=== PATIENT | male | born 1955 | race Caucasian/White ===

== ENCOUNTER 2017-06-21 11:31 | Emergency (ER) | payer BC ==
[2017-06-21 12:40] LABS: ABS Basophils 0.1 10^3/ul (0-0.2); ABS Eosinophils 0.4 10^3/ul (0-0.6); ABS Lymphocytes 1.5 10^3/ul (1.0-4.8); ABS Monocytes 0.7 10^3/ul (0-0.8); ABS Neutrophils 4.5 10^3/ul (1.5-7.7); ABS Nucleated RBC 0 10^3/ul; Eosinophil % 5.2 % (0-6); Hematocrit 45 % (42-52); Hemoglobin 14.9 g/dl (14.0-18.0); Lymphocyte % 20.7 % (25-47); Mean Corpuscular HGB Conc 34 g/dl (31-36); Mean Corpuscular Hemoglobin 31 pg (27-31); Mean Corpuscular Volume 94 fL (80-94); Mean Platelet Volume 7 um3 (7.4-10.4); Nucleated Red Blood Cells % 0; Platelet Count 249 10^3/ul (150-450); Red Blood Count 4.76 10^6/ul (4.0-5.4); Red Cell Distribution Width 14 % (10.5-15); White Blood Count 7.2 10^3/ul (3.5-10.8)
[2017-06-21 12:51] LABS: INR 0.93 (0.77-1.02)
[2017-06-21 12:57] LABS: EGFR Non-African American 110.6 (>60)
--- NOTE | 2017-06-21 13:40 | RAD ---
INDICATION: Chest pain COMPARISON: Chest x-ray dated February 12, 2016 TECHNIQUE: Single AP portable view of the chest was obtained. FINDINGS: Image quality is compromised due to the relative inferiority of a portable chest x-ray. The heart and mediastinum exhibit normal size and contour. The lungs are grossly clear. There is no evidence of a large pleural effusion. Visualized bones are normal for the patient's age. IMPRESSION: No radiographic evidence for acute cardiopulmonary abnormality on this portable chest x-ray.
[2017-06-21 15:59] VITALS: BP 126/95
--- NOTE | 2017-06-22 20:09 | ED ---
Harry Solorzano Thomas, scribed for Lorenzo Morse MD on 06/21/17 at 1228 . Complex/Multi-Sys Presentation - HPI Summary HPI Summary: The patient is a 61 year old male presenting with mild lightheadedness and left- sided facial and left arm tingling that began two days ago. These symptoms are not affected by movement or exertion. The patient denies chest pain, shortness of breath, nausea, and diaphoresis. The patients blood pressure was measured at 180/105 prior to arrival. The patient had an PA in 2008. He is on ASA 81 and Effient. - History Of Current Complaint Chief Complaint: EDChestPainROMI Time Seen by Provider: 06/21/17 11:51 Hx Obtained From: Patient Onset/Duration: Lasting Days - 2, Still Present Timing: Constant Severity Currently: Mild Alleviating Factor(s): None Associated Signs And Symptoms: Positive: Other - lightheadedness, facial numbness; NEGATIVE: CP, SOB, nausea, diaphoresis Related History: Other - PA in 2008 - Allergies/Home Medications Allergies/Adverse Reactions: Allergies Allergy/AdvReac Type Severity Reaction Status Date / Time codeine Allergy Hives Verified 06/21/17 11:34 ibuprofen Allergy GI Upset Verified 06/21/17 11:35 PMH/Surg Hx/FS Hx/Imm Hx Endocrine/Hematology History: Reports: Hx Anticoagulant Therapy Denies: Hx Diabetes Cardiovascular History: Reports: Hx Angina, Hx Congestive Heart Failure, Hx Coronary Artery Disease, Hx Hypercholesterolemia, Hx Hypertension, Hx Myocardial Infarction, Other Cardiovascular Problems/Disorders - 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 Gastric bypass, 2006, [place]. Inguinal hernia with mesh, 2007, [place]. Carpal tunnel surgery (bilat), 1999, [facility] [place]. Left elbow fx and repair, as child Hx Anesthesia Reactions: No Infectious Disease History: Denies: Traveled Outside the [place] in Last 30 Days - Family History Known Family History: Positive: Cardiac Disease - Social History Alcohol Use: None Substance Use Type: Reports: None Smoking Status (MU): Never Smoked Tobacco Review of Systems Negative: Fever, Skin Diaphoresis Negative: Chest Pain Negative: Shortness Of Breath Negative: Nausea Neurological: Other - Mild lightheadness, tingling All Other Systems Reviewed And Are Negative: Yes Physical Exam - Summary Physical Exam Summary: Appearance: The patient is well-nourished in no acute distress and in no acute pain. Skin: The skin is warm and dry and skin color reflects adequate perfusion. HEENT: ~The head is normocephalic and atraumatic. The pupils are equal and reactive. The conjunctivae are clear and without drainage. ~Nares are patent and without drainage. Mouth reveals moist mucous membranes and the throat is without erythema and exudate. The external ears are intact. The ear canals are patent and without drainage. The tympanic membranes are intact. Neck: the neck is supple with full range of motion and non-tender. There are no carotid bruits. ~There is no neck vein distension. Respiratory: Chest is non-tender. ~Lungs are clear to auscultation and breath sounds are symmetrical and equal. Cardiovascular: Heart is regular rate and rhythm. ~There is no murmur or rub auscultated. ~~There is no peripheral edema and pulses are symmetrical and equal. Abdomen: The abdomen is soft and non-tender. ~There are normal bowel sounds heard in all four quadrants and there is no organomegaly palpated. Musculoskeletal: There is no back tenderness noted. ~Extremities are non-tender with full range of motion. ~There is good capillary refill. There is no peripheral edema or calf tenderness elicited. Neurological: Patient is alert and oriented to person, place and time. ~The patient has symmetrical motor strength in all four extremities. ~Cranial nerves are grossly intact. Deep tendon reflexes are symmetrical and equal in all four extremities. Psychiatric: The patient has an appropriate affect and does not exhibit any anxiety or depression. Triage Information Reviewed: Yes Vital Signs On Initial Exam: Initial Vitals Temp Pulse Resp BP Pulse Ox 98.1 F 74 16 182/86 96 06/21/17 11:35 06/21/17 11:35 06/21/17 11:35 06/21/17 11:35 06/21/17 11:35 Vital Signs Reviewed: Yes Diagnostics - Vital Signs Vital Signs Temp Pulse Resp BP Pulse Ox 06/21/17 11:35 98.1 F 74 16 182/86 96 - Laboratory Lab Results: Lab Results 06/21/17 06/21/17 06/21/17 Range/Units 12:30 12:30 12:30 WBC 7.2 (3.5-10.8) 10^3/ul RBC 4.76 (4.0-5.4) 10^6/ul Hgb 14.9 (14.0-18.0) g/dl Hct 45 (42-52) % MCV 94 (80-94) fL MCH 31 (27-31) pg MCHC 34 (31-36) g/dl RDW 14 (10.5-15) % Plt Count 249 (150-450) 10^3/ul MPV 7 L (7.4-10.4) um3 Neut % (Auto) 62.7 (38-83) % Lymph % (Auto) 20.7 L (25-47) % Whitfield % (Auto) 10.1 H (0-7) % Eos % (Auto) 5.2 (0-6) % Baso % (Auto) 1.3 (0-2) % Absolute Neuts (auto) 4.5 (1.5-7.7) 10^3/ul Absolute Lymphs (auto) 1.5 (1.0-4.8) 10^3/ul Absolute Monos (auto) 0.7 (0-0.8) 10^3/ul Absolute Eos (auto) 0.4 (0-0.6) 10^3/ul Absolute Basos (auto) 0.1 (0-0.2) 10^3/ul Absolute Nucleated RBC 0 10^3/ul Nucleated RBC % 0 INR (Anticoag Therapy) 0.93 (0.77-1.02) Sodium 137 (133-145) mmol/L Potassium 4.1 (3.5-5.0) mmol/L Chloride 105 (101-111) mmol/L Carbon Dioxide 25 (22-32) mmol/L Anion Gap 7 (2-11) mmol/L BUN 17 (6-24) mg/dL Creatinine 0.72 (0.67-1.17) mg/dL Est GFR ( Amer) 142.3 (>60) Est GFR (Non-Af Amer) 110.6 (>60) BUN/Creatinine Ratio 23.6 H (8-20) Glucose 101 H (70-100) mg/dL Lactic Acid (0.5-2.0) mmol/L Calcium 9.4 (8.6-10.3) mg/dL Total Bilirubin 0.50 (0.2-1.0) mg/dL AST 28 (13-39) U/L ALT 20 (7-52) U/L Alkaline Phosphatase 74 (34-104) U/L Troponin I 0.00 (<0.04) ng/mL Total Protein 7.2 (6.4-8.9) g/dL Albumin 4.1 (3.2-5.2) g/dL Globulin 3.1 (2-4) g/dL Albumin/Globulin Ratio 1.3 (1-3) 06/21/17 06/21/17 Range/Units 12:30 15:12 WBC (3.5-10.8) 10^3/ul RBC (4.0-5.4) 10^6/ul Hgb (14.0-18.0) g/dl Hct (42-52) % MCV (80-94) fL MCH (27-31) pg MCHC (31-36) g/dl RDW (10.5-15) % Plt Count (150-450) 10^3/ul MPV (7.4-10.4) um3 Neut % (Auto) (38-83) % Lymph % (Auto) (25-47) % Whitfield % (Auto) (0-7) % Eos % (Auto) (0-6) % Baso % (Auto) (0-2) % Absolute Neuts (auto) (1.5-7.7) 10^3/ul Absolute Lymphs (auto) (1.0-4.8) 10^3/ul Absolute Monos (auto) (0-0.8) 10^3/ul Absolute Eos (auto) (0-0.6) 10^3/ul Absolute Basos (auto) (0-0.2) 10^3/ul Absolute Nucleated RBC 10^3/ul Nucleated RBC % INR (Anticoag Therapy) (0.77-1.02) Sodium (133-145) mmol/L Potassium (3.5-5.0) mmol/L Chloride (101-111) mmol/L Carbon Dioxide (22-32) mmol/L Anion Gap (2-11) mmol/L BUN (6-24) mg/dL Creatinine (0.67-1.17) mg/dL Est GFR ( Amer) (>60) Est GFR (Non-Af Amer) (>60) BUN/Creatinine Ratio (8-20) Glucose (70-100) mg/dL Lactic Acid 0.8 (0.5-2.0) mmol/L Calcium (8.6-10.3) mg/dL Total Bilirubin (0.2-1.0) mg/dL AST (13-39) U/L ALT (7-52) U/L Alkaline Phosphatase (34-104) U/L Troponin I 0.00 (<0.04) ng/mL Total Protein (6.4-8.9) g/dL Albumin (3.2-5.2) g/dL Globulin (2-4) g/dL Albumin/Globulin Ratio (1-3) Result Diagrams: 06/21/17 12:30 06/21/17 12:30 Lab Statement: Any lab studies that have been ordered have been reviewed, and results considered in the medical decision making process. - Radiology CXR Xray Interpretation: No Acute Changes - No radiographic evidence for acute cardiopulmonary abnormality on this portable chest x-ray. Dr. Morse has reviewed this report. Radiology Interpretation Completed By: Radiologist - EKG 11:37 Cardiac Rate: Bradycardia EKG Rhythm: Sinus Bradycardia - at 60 BPM Complex Multi-Symp Course/Dx Course Of Treatment: Mr. Hernandez presented with an atypical CP that reminded him of when he had his heart attack a decade ago. His W/U including two troponins was negative and he was D/C'd to F/U with his PMD. - Diagnoses Provider Diagnoses: Chest pain Discharge - Discharge Plan Condition: Stable Disposition: HOME Patient Education Materials: Chest Pain (ED) Referrals: Mariely Arguello MD [Primary Care Provider] - 3 Days Additional Instructions: Follow up with Dr. Arguello in three days. Return to the emergency department for any new or worsening symptoms. The documentation as recorded by the Harry johnson Thomas accurately reflects the service I personally performed and the decisions made by , Lorenzo Morse MD.
== END 2017-06-21 16:11 | disposition home or self-care (01) ==
LOC: ED 11:31
DX: R07.9 Chest pain, unspecified (principal); R42 Dizziness and giddiness; Z79.01 Long term (current) use of anticoagulants
CPT/HCPCS: 36415; 71045; 80053; 83605; 84484; 85025; 85610; 93005; 99282

== ENCOUNTER 2018-04-23 08:02 | Day surgery (SDC) | payer BC ==
[~2018-04-23 08:02] MED LIST: Buffered Lidocaine 1% SYRIN* 1 ML/SYRINGE INTRADERM ONE; Lactated Ringers 1000 ML Bag* 1,000 ML IV SCH
[2018-04-23] MEDS ORDERED: Bupivacaine 0.25% SDV PF* 10 ML VIAL INJ ONE (09:00)
[2018-04-23] MEDS ORDERED: Naloxone* 0.4 MG/ML 1 ML VIAL IV PRN (09:06)
[2018-04-23] MEDS ORDERED: fentaNYL* 50 MCG/ML 2 ML VIAL (100 MCG VIAL) ONE (09:20)
[2018-04-23] MEDS ORDERED: Midazolam* 1 MG/ML 2 ML VIAL (2 MG) ONE (09:20)
[2018-04-23 10:06] VITALS: BP 138/89
--- NOTE | 2018-04-23 14:40 | OP ---
DATE OF OPERATION: 04/23/18 [facility] DATE OF : 53 SURGEON: Maxim Ramsey MD COMMUNITY SERVICE PATROL OFFICER: LAURY Stuart ANESTHESIOLOGIST: Dr. Carolina. ANESTHESIA: Local MAC. PRE-OP DIAGNOSIS: Chronic left ring trigger finger. POST-OP DIAGNOSES: 1. Chronic left ring trigger finger. 2. Left ring finger abundant tenosynovitis. OPERATIVE PROCEDURE: INDICATIONS: Javier has the aforementioned trigger finger. We talked about risks and benefits. He wanted to proceed. FINDINGS: See above and below. ESTIMATED BLOOD LOSS: 1 mL. COMPLICATIONS: None. DESCRIPTION OF PROCEDURE: Javier was seen in the preoperative holding area. The correct site, side, and procedure were identified. We came back to the operating room where I infiltrated the operative area with 0.25% plain Marcaine. The arm was then prepped and draped in the usual fashion and a time- out was performed. I exsanguinated the arm with the Esmarch and the tourniquet was inflated to 250 mmHg. I made a 1-cm transverse incision in the distal palmar crease. Dissection was carried down and full-thickness flaps were raised bluntly off the flexor tendon sheath. I had released a few of the bands of palmar fascia. I then released the A1 divya along the radial third longitudinally. There was a large amount of tenosynovitis all around the tendons. I decided that we should excise this, so we took some time and we performed a full flexor tenosynovectomy of the FDS and FDP tendon. Once I had the tendons nicely cleaned and Javier flexed his hand down multiple times, there was no more triggering, we irrigated out the wound. Skin was closed with 4-0 nylon suture. Soft dressings were applied and he was taken to the recovery room in stable condition. [id number]/[facility] #: [id number] JOHN
== END 2018-04-23 10:20 | disposition home or self-care (01) ==
LOC: OREAST 08:02
PROVIDERS: ATTEND Orthopaedic Surgery Hand Surgery
DX: M65.342 Trigger finger, left ring finger (principal); M65.842 Other synovitis and tenosynovitis, left hand; I11.9 Hypertensive heart disease without heart failure; E78.5 Hyperlipidemia, unspecified; M19.90 Unspecified osteoarthritis, unspecified site; Z79.899 Other long term (current) drug therapy; Z79.82 Long term (current) use of aspirin
CPT/HCPCS: 88304; J2250; J3010; J3490

== ENCOUNTER → 2019-02-08 09:04 | Day surgery (SDC) | payer BC ==
--- NOTE | 2019-01-22 10:53 | HP ---
AMENDED REPORT NOW INCLUDES DESIGNATED COSIGNER CC: Dr. Mariely Arguello; Dr. Suresh * PREOPERATIVE HISTORY AND PHYSICAL: DATE OF ADMISSION/SURGERY: This patient is scheduled for same-day surgery admission by Dr. Ayala on 02/08/19. DATE OF PREOPERATIVE HISTORY AND PHYSICAL EXAMINATION: 01/19/19 ATTENDING SURGEON: Dr. Hugo Ayala * (dictated by Gabby Cao NP). CHIEF COMPLAINT: Right groin hernia. HISTORY OF PRESENT ILLNESS: The patient is a 63-year-old male recently evaluated by Dr. Ayala for a right inguinal hernia. The patient states that he has noticed a bulge for several months and thinks it may be enlarging. He has also noticed discomfort with activity modified by rest; he denies any signs or symptoms to suggest incarceration or strangulation and has had no difficulty with bladder or bowel movements. He had a ventral hernia repair with mesh in 2007 and an open left inguinal hernia repair with mesh in 2008. He underwent a gastric bypass in 2007 and had a 200-pound weight loss. Dr. Ayala examined the patient and noted a large pannus from significant weight loss; the patient revealed a reducible right inguinal hernia and no left inguinal hernia was palpated. Dr. Ayala discussed the above findings with the patient and has offered robotic repair of the right inguinal hernia with mesh as the same day surgery procedure; Dr. Ayala also discussed open repair. The patient has opted for robotic repair of the right inguinal hernia with mesh; Dr. Ayala discussed the relevant risks and benefits of the same day surgery and the expected postoperative care and recovery. The patient has had a chance to ask questions and stated that he understands the information and is satisfied with the answers given to his questions. He will signs surgical consent on the day of surgery. PAST MEDICAL HISTORY: Significant for: 1. Obesity. 2. Coronary artery disease with previous myocardial infarction in 2009, followed by angioplasty and stenting on two separate occasions; hypertension well controlled and hyperlipidemia. PAST SURGICAL HISTORY: 1. Gastric bypass in , 2006. 2. Ventral hernia repair with mesh, 2007. 3. Open left inguinal hernia repair with mesh, 2008. 4. Nasal surgery, 2008. 5. Angioplasty and stent placement, 2009. 6. Right total knee replacement, 2015. 7. Tonsillectomy many years ago. CURRENT MEDICATIONS: 1. Atorvastatin 80 mg p.o. daily. 2. Metoprolol 25 mg one half tablet by mouth daily. 3. Lisinopril 10 mg one half tablet by mouth daily. 4. Pantoprazole 20 mg p.o. daily. 5. Ezetimibe 10 mg p.o. daily. 6. Aspirin 81 mg p.o. daily which she will hold 5 days preoperatively. 7. Effient 10 mg p.o. daily. 8. Nitroglycerin 0.4 mg 1 sublingual every 5 minutes x3 p.r.n., none needed recently. ALLERGIES: TYLENOL WITH CODEINE causes dizziness and hot flashes. FAMILY HISTORY: Father due to a logging accident with a history of hyperlipidemia, coronary artery disease, and open heart surgery in his 50s. Mother with a history of hypertension. No known anesthesia complications, bleeding tendencies, or clotting disorders in the family. SOCIAL HISTORY: He is and is retired from [employer]. He has never been a smoker. He denies use of alcohol or drugs. 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 REVIEW OF SYSTEMS: Constitutional: No fevers, chills, excessive fatigue, or unintended weight loss. Endocrine: No diabetes or thyroid disease. Hematologic: No easy bruising or current bleeding. He has a history of GI bleeding from stomach ulcers and was transfused in 2009 and 2013. Respiratory: No dyspnea on exertion. No chronic cough. Cardiovascular: History of coronary artery disease and myocardial infarction; he is followed by Dr. Suresh. Please see Dr. Suresh's note dated 08/06/18 for complete details; he denies chest pain, syncopal episodes, orthopnea, edema; he had an EKG in Dr. Suresh's office which showed sinus rhythm with a heart rate of 61 and there were PACs; the patient will have a preoperative echocardiogram on 01/20/[address] Suresh. Previous ejection fraction was 50% to 55%. Gastrointestinal: No nausea, vomiting, diarrhea, GI bleeding or constipation. No change in bowel habits. Genitourinary: No dysuria. Musculoskeletal: Normal strength and tone. Integumentary: No chronic rashes, or skin changes. Neurologic: No headache, blurred vision, or areas of focal weakness. Psychiatric: No insomnia or depression. General: No previous anesthesia complications. No history of deep vein thrombosis or pulmonary embolism. PHYSICAL EXAMINATION GENERAL SURVEY: The patient is a 63-year-old male, well developed, well nourished, in no acute distress. VITAL SIGNS: Height 72 inches, weight 221 pounds, body mass index 30. Blood pressure 124/80, pulse 78 and regular, respiratory rate 16, temperature 97.7 tympanic. HEENT: Benign. NECK: Supple. Trachea midline. No cervical lymphadenopathy. LUNGS: Breath sounds bilaterally clear and equal. HEART: Regular rate and rhythm. No murmurs or rubs appreciated. ABDOMEN: Well-healed surgical scars; soft, nontender, and nondistended; large pannus of skin from significant weight loss. No skin fold ulcerations. No obvious masses or organomegaly. Inguinal exam done by Dr. Ayala revealed a reducible right inguinal hernia. No palpable left inguinal hernia. BACK: No CVA tenderness. GENITALIA: Normal external genitalia. EXTREMITIES: Warm without edema or skin ulceration. NEUROLOGIC: Alert and oriented x3. Steady gait. SKIN: Warm, dry, intact. IMPRESSION: Right inguinal hernia. PLAN: Same-day surgery admission to Dr. Ayala's service for 02/08/19 for robotic right inguinal hernia repair with mesh; the patient will have a preoperative echocardiogram on 01/20/[address] Suresh's office. DAI CAO NP [id number]/[facility] #: [id number] JOHN
[~2019-02-08 09:04] MED LIST changes: +Bupivacaine 0.25% SDV PF* 10 ML VIAL INJ ONE; +Dexamethasone IV* 4 MG/ML 1 ML (4 MG) ONE; +EPHEDrine (Pressors)* 50 MG/ML VIAL ONE; +Famotidine IV* 10 MG/ML 2 ML (20 mg) IV ONE; +Famotidine IV* 10 MG/ML 2 ML (20 mg) ONE; +Heparin VIAL(*) 5000 UNITS/ML VIAL (FIVE THOUSAND) ONE; +KETAMINE HCL* 50 MG/ML 10 ML VIAL ONE; +Ketorolac INJ* 30 MG/ML 1 ML VIAL ONE; -Lactated Ringers 1000 ML Bag* 1,000 ML IV SCH; +Lidocaine 2% PF * 5 ML VIAL ONE; +Midazolam* 1 MG/ML 5 ML VIAL (5 MG) ONE; +Naloxone* 0.4 MG/ML 1 ML VIAL IV PRN; +Ondansetron INJ* 2 MG/ML VIAL IV PRN; +Ondansetron INJ* 2 MG/ML VIAL ONE; +Phenylephrine 10 MG/ML VIAL* 1 ML VIAL ONE; +Propofol* 10 MG/ML 20 ML BTL ONE; +Rocuronium* 10 MG/ML VIAL ONE; +Sugammadex * 200 MG/2 ML VIAL IV PUSH ONE; +ceFAZolin 2 GM in NS PREMIX(*) 2 GM/100 ML BAG IVPB ONE; +fentaNYL* 50 MCG/ML 2 ML VIAL (100 MCG VIAL) IV PRN; +fentaNYL* 50 MCG/ML 2 ML VIAL (100 MCG VIAL) ONE
[2019-02-08] MEDS: Lactated Ringers 1000 ML Bag* 1,000 ML IV SCH ×2 (09:36→15:34)
[2019-02-08 17:29] VITALS: BP 122/75
--- NOTE | 2019-02-09 01:26 | OP ---
DATE OF OPERATION: 02/08/19 - [facility] DATE OF : 53 ATTENDING SURGEON: Hugo Ayala MD. REHABILITATION TEAM LEAD: Andreia Brownlee NP. PRE-OP DIAGNOSIS: Right inguinal hernia. POST-OP DIAGNOSIS: Right inguinal hernia, pantaloon hernia. OPERATIVE PROCEDURE: Robotic repair of right inguinal hernia with mesh. INDICATIONS FOR PROCEDURE: Right inguinal hernia. Risks included, but not limited to, bleeding, infection, recurrence of hernia, injury to pelvic nerves and vessels, and persistent pain were explained to the patient who seemed to understand and agreed to the procedure and all questions were answered. DESCRIPTION OF PROCEDURE: The patient was taken to the operating room and placed supine. Preoperative antibiotics were given. After successful induction of general endotracheal anesthesia, the abdomen was prepped and draped in sterile fashion. Time-out was performed indicating the correct patient and correct procedure. Then 5 mm trocar was placed laterally in the left upper quadrant under direct visualization of a camera. Using a bladeless Optiview trocar pneumoperitoneum was achieved at 15 mmHg. A camera was placed in the abdomen and the abdomen was scanned. A large piece of mesh was noted on the anterior abdominal wall, in the midline. Obvious right inguinal hernia was noted. No left inguinal hernia was noted. An 8 mm trocar was placed in the midline, in the supraumbilical position through the mesh and a right upper quadrant 8 mm trocar was placed in a similar fashion. The patient was placed in a slight Trendelenburg position. The robot was brought in and docked. The peritoneum was taken down, exposing a large direct hernia and a moderate sized indirect hernia. Cord structures were isolated and avoided. A piece of ProGrip mesh was placed over the right hemipelvis, covering the femoral indirect and direct spaces of this pantaloon hernia. The peritoneum was closed with a running 3-0 V-Loc stitch. The abdomen was scanned. There were no injuries noted. The trocars were removed. The pneumoperitoneum was released from the abdomen. The skin was closed with Monocryl and glue. The patient tolerated the procedure well, was extubated and taken to the recovery room in stable condition. [id number]/[facility] #: [id number] MTDD
== END | disposition home or self-care (01) ==
LOC: OR 09:04
PROVIDERS: ATTEND Surgery
DX: K40.90 Unilateral inguinal hernia, without obstruction or gangrene, not specified as recurrent (principal); I25.10 Atherosclerotic heart disease of native coronary artery without angina pectoris; I25.2 Old myocardial infarction; Z95.5 Presence of coronary angioplasty implant and graft; I10 Essential (primary) hypertension; E78.5 Hyperlipidemia, unspecified; Z98.84 Bariatric surgery status; Z79.82 Long term (current) use of aspirin
CPT/HCPCS: 49650; S2900; C1781; J0690; J1100; J1644; J1885; J2250; J2405; J2704; J3010; J3490

== ENCOUNTER 2019-03-29 07:33 | Day surgery (SDC) | payer BC ==
[~2019-03-29 07:33] MED LIST changes: -Bupivacaine 0.25% SDV PF* 10 ML VIAL INJ ONE; -Dexamethasone IV* 4 MG/ML 1 ML (4 MG) ONE; -EPHEDrine (Pressors)* 50 MG/ML VIAL ONE; -Famotidine IV* 10 MG/ML 2 ML (20 mg) IV ONE; -Famotidine IV* 10 MG/ML 2 ML (20 mg) ONE; -Heparin VIAL(*) 5000 UNITS/ML VIAL (FIVE THOUSAND) ONE; -KETAMINE HCL* 50 MG/ML 10 ML VIAL ONE; -Ketorolac INJ* 30 MG/ML 1 ML VIAL ONE; +Lactated Ringers 1000 ML Bag* 1,000 ML IV SCH; -Lidocaine 2% PF * 5 ML VIAL ONE; -Midazolam* 1 MG/ML 5 ML VIAL (5 MG) ONE; -Naloxone* 0.4 MG/ML 1 ML VIAL IV PRN; -Ondansetron INJ* 2 MG/ML VIAL IV PRN; -Ondansetron INJ* 2 MG/ML VIAL ONE; -Phenylephrine 10 MG/ML VIAL* 1 ML VIAL ONE; -Propofol* 10 MG/ML 20 ML BTL ONE; -Rocuronium* 10 MG/ML VIAL ONE; -Sugammadex * 200 MG/2 ML VIAL IV PUSH ONE; -ceFAZolin 2 GM in NS PREMIX(*) 2 GM/100 ML BAG IVPB ONE; -fentaNYL* 50 MCG/ML 2 ML VIAL (100 MCG VIAL) IV PRN; -fentaNYL* 50 MCG/ML 2 ML VIAL (100 MCG VIAL) ONE
[2019-03-29] MEDS ORDERED: Metoprolol Succinate XL TAB* 25 MG PO STA (08:06)
[2019-03-29] MEDS ORDERED: Bupivacaine 0.25% SDV PF* 10 ML VIAL INJ ONE (10:04)
[2019-03-29] MEDS ORDERED: Naloxone* 0.4 MG/ML 1 ML VIAL IV PRN (10:11)
[2019-03-29] MEDS ORDERED: fentaNYL* 50 MCG/ML 2 ML VIAL (100 MCG VIAL) ONE (10:30)
[2019-03-29] MEDS ORDERED: Midazolam* 1 MG/ML 2 ML VIAL (2 MG) ONE (10:30)
[2019-03-29] MEDS ORDERED: Propofol* 10 MG/ML 20 ML BTL ONE (10:34)
[2019-03-29 11:51] VITALS: BP 134/81
--- NOTE | 2019-03-30 01:14 | OP ---
OPERATIVE REPORT: DATE OF OPERATION: 03/29/19 - [facility] DATE OF : 53 SURGEON: Maxim Ramsey MD FIELD HAULER: LAURY Portillo ANESTHESIOLOGIST: Dr. Carolina. ANESTHESIA: Local MAC. PRE-OP DIAGNOSIS: Left middle finger mucous cyst. POST-OP DIAGNOSIS: Left middle finger mucous cyst. OPERATIVE PROCEDURE: Excision of left middle finger mucous cyst. INDICATIONS: Javier has a cyst that is indenting the nail bed. We talked about treatment options. He wanted to have it excised. He understands there is a chance of recurrence. ESTIMATED BLOOD LOSS: 2 mL. COMPLICATIONS: None. FINDINGS: See above and below. DESCRIPTION OF PROCEDURE: Mr. Hernandez was seen in the preoperative holding area. The correct side, site, and procedure were identified. We came back to the operating room. He got some anesthesia. A digital block was performed. The arm was then prepped and draped in the usual fashion. I made an L-shaped incision over the dorsal ulnar aspect of the joint. The cyst was excised via marginal excision. You could see where it was pushing down and indenting on the germinal matrix. It went all the way up near the paronychial area. Once I had fully excised it, I cauterized the area with Bovie. The wound was irrigated out. Skin was closed with 4-0 nylon suture. A soft dressing was applied and he was taken to the recovery room in stable condition. A finger tourniquet was used throughout the procedure. [id number]/[facility] #: [id number] MTDD
== END 2019-03-29 11:54 | disposition home or self-care (01) ==
LOC: OR 07:33
PROVIDERS: ATTEND Orthopaedic Surgery Hand Surgery
PROC: 0LB80ZZ Excision of Left Hand Tendon, Open Approach (ICD-10-PCS; principal; 2019-03-29 09:30)
DX: M67.442 Ganglion, left hand (principal); I10 Essential (primary) hypertension; I25.10 Atherosclerotic heart disease of native coronary artery without angina pectoris; I25.2 Old myocardial infarction; I77.810 Thoracic aortic ectasia; E78.5 Hyperlipidemia, unspecified; M79.89 Other specified soft tissue disorders; M17.11 Unilateral primary osteoarthritis, right knee; Z96.651 Presence of right artificial knee joint; Z98.84 Bariatric surgery status; Z95.5 Presence of coronary angioplasty implant and graft; Z68.31 Body mass index [BMI] 31.0-31.9, adult; Z79.82 Long term (current) use of aspirin; Z79.01 Long term (current) use of anticoagulants
CPT/HCPCS: 88304; J2250; J2704; J3010; J3490